=== PATIENT | female | born 1980 | race Caucasian/White ===

== ENCOUNTER → 2024-09-18 | Day surgery (SDC) | payer MEDICAID ==
[~2024-09-18] VITALS: Ht 162.6 cm; Wt 78.0 kg
[~2024-09-18] MED LIST: BUPIVACAINE HCL/PF 0.5% (5MG/ML) 10ML ONE; FENTANYL CITRATE/PF 50MCG/ML 2ML VIAL ONE; GLYCOPYRROLATE 0.2 MG/ML 2ML VIAL IV PRN; HYDRALAZINE 20MG/ML VIAL IV PRN; HYDROMORPHONE HCL/PF 1MG/ML INJ IV PRN; LABETALOL 5MG/ML 4ML INJ IV PRN; PROPOFOL 200MG/20ML VIAL IV ONE; SKIN ADHESIVE 0.7 GM EA TOP ONE
[2024-09-18 07:28] LABS: UCG SCREEN NEGATIVE
[2024-09-18] MEDS: LACTATED RINGERS 1,000 ML IV SCH (07:41)
[2024-09-18] MEDS: HYDROMORPHONE HCL/PF 1MG/ML INJ IV PRN (12:08)
[2024-09-18] MEDS: ONDANSETRON HCL 4MG/2ML INJ IV PRN (12:11)
[2024-09-18 13:05] VITALS: BP 118/73; PULSE 51; RESP 15
[2024-09-18] MEDS: ACETAMINOPHEN WITH CODEINE 300/30MG TABLET PO PRN (13:05)
== END | disposition home or self-care (01) ==
LOC: OR 06:39
PROVIDERS: ATTEND Surgery
DX: L02.216 Cutaneous abscess of umbilicus (principal); K65.9 Peritonitis, unspecified; Z79.899 Other long term (current) drug therapy; Z98.890 Other specified postprocedural states
CPT/HCPCS: 22902; 88304; 81025; J1171; J3010; J0665; J2405; J2704